=== PATIENT | male | born 1990 | race African-American/Black ===

== ENCOUNTER 2016-10-06 02:13 | Inpatient (IN) | payer SELFPAY ==
[~2016-10-06] VITALS: Ht 170.2 cm; Wt 69.8 kg
[2016-10-06] MEDS ORDERED: ONDANSETRON HCL 4 MG/2 ML VIAL ONE (02:17)
[2016-10-06] MEDS ORDERED: HYDROmorphone HCL PF 1 MG/ML VIAL ONE (02:17)
[2016-10-06 02:20] VITALS: BP 134/76; PULSE 73; RESP 19; RESP 22; TEMP 97.9; O2SAT 100; O2SAT 97
[2016-10-06] MEDS ORDERED: SODIUM CHLOR 0.9% 1000 ML INJ 1,000 ML IV SCH (02:20)
[2016-10-06] MEDS ORDERED: DIPHTH/TETANUS/ACEL PERTUSSIS (BOOSTER) 0.5 ML VIAL/PFS IM ONE (02:21)
[2016-10-06] MEDS ORDERED: ceFAZolin 2 GM PREMIX 50 ML ONE (02:21)
[2016-10-06] MEDS ORDERED: HYDROmorphone HCL PF 1 MG/ML VIAL IVS ONE (02:30)
[2016-10-06] MEDS ORDERED: TETANUS/DIPHTHERIA TOXOID ADULT 0.5 ML VIAL IM ONE (02:30)
[2016-10-06] MEDS ORDERED: ceFAZolin 2 GM PREMIX 50 ML IV ONE (02:30)
[2016-10-06] MEDS ORDERED: ONDANSETRON HCL 4 MG/2 ML VIAL IVP ONE (02:30)
[2016-10-06] MEDS ORDERED: SODIUM CHLORIDE 0.9% FLUSH 10 ML FLUSH IV FLUSH PRN ×2 (02:30→10:00)
[2016-10-06 02:49] LABS: AUTOMATED NEUTROPHIL # 4.5 TH/MM3 (1.8-7.7); BASOPHIL # 0.1 TH/MM3 (0-0.2); EOSINOPHIL # 0.1 TH/MM3 (0-0.4); EOSINOPHIL % 0.9 % (0.0-4.0); HEMATOCRIT 40.6 % (39.0-51.0); HEMO FLAGS DIFF FINAL; LYMPH % 33.2 % (9.0-44.0); LYMPHOCYTE # 2.8 TH/MM3 (1.0-4.8); MEAN CELL VOLUME 84.4 FL (80.0-100.0); MEAN CORPUSCULAR HGB CONC 33.2 % (32.0-36.0); MONO % 10.3 % (0.0-8.0); NEUT % 54.6 % (16.0-70.0); PLATELET COUNT 255 TH/MM3 (150-450); RED BLOOD COUNT 4.81 MIL/MM3 (4.50-5.90); RED CELL DISTRIBUTION WIDTH 14.1 % (11.6-17.2); WHITE BLOOD COUNT 8.3 TH/MM3 (4.0-11.0)
[2016-10-06 02:58] LABS: APTT (PATIENT) 22.9 SEC (24.3-30.1); PROTHROMBIN TIME - PATIENT 10.6 SEC (9.8-11.6)
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
[2016-10-06 03:17] LABS: BICARBONATE 23.5 MEQ/L (21.0-32.0); POTASSIUM 3.5 MEQ/L (3.5-5.1)
[2016-10-06] MEDS ORDERED: HYDROmorphone HCL PF 1 MG/ML VIAL IV PUSH ONE (03:30)
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
[2016-10-06] MEDS ORDERED: BUPIVACAINE HCL PF 0.5% 30 ML VIAL ONE (06:42)
[2016-10-06] MEDS ORDERED: LIDOCAINE HCL 1% 50 ML VIAL ONE (06:43)
[2016-10-06] MEDS ORDERED: FAMOTIDINE 20 MG/2 ML VIAL ONE (07:20)
[2016-10-06] MEDS ORDERED: ceFAZolin INJ 1,000 MG VIAL ONE (07:28)
[2016-10-06] MEDS ORDERED: NEOMYCIN/POLYMYXIN 1 ML G.U. IRRIGANT IR ONE (07:52)
[2016-10-06] MEDS ORDERED: MUPIROCIN 2% OINT 22 GM TUBE TOP ONE (09:20)
--- NOTE | 2016-10-06 09:41 | PD.OP ---
Operative Report Preoperative Diagnosis: (1) Laceration of left hand with complication (2) Fx trapezium bone-open (3) Open fracture of scaphoid bone of left wrist Postoperative Diagnosis: (1) Fx trapezium bone-open (2) Laceration of left hand with complication (3) Open fracture of scaphoid bone of left wrist Procedure: exploration, excisional debridement, open reduction and internal fixation trapezium with k-wires and repair of laceration left wrist and hand Anesthesia: general Surgeon: Noel Zhou Senior Escrow Officer(s): giovany Operation and Findings: complex laceration with thenar flap over the volar radial aspect of the wrist and hand extensive foreign bodies within the wound comminuted fracture trapezium fracture scaphoid tuberosity Noel Zhou MD Oct 06, 2016 09:41
[2016-10-06] MEDS ORDERED: fentaNYL CITRATE 250 MCG/5 ML AMP ONE (09:45)
[2016-10-06] MEDS ORDERED: MIDAZOLAM HCL 2 MG/2 ML VIAL ONE (09:46)
[2016-10-06] MEDS ORDERED: NALOXONE HCL 0.4 MG/ML AMP IV PRN (10:00)
[2016-10-06] MEDS ORDERED: SENNOSIDES 8.6 MG TAB PO PRN (10:00)
[2016-10-06] MEDS ORDERED: ONDANSETRON HCL 4 MG/2 ML VIAL IVP PRN (10:00)
[2016-10-06] MEDS ORDERED: BISACODYL 10 MG SUPP RECTAL PRN (10:00)
[2016-10-06] MEDS ORDERED: MAGNESIUM HYDROXIDE SUSP 30 ML CUP PO PRN (10:00)
[2016-10-06] MEDS ORDERED: LACTULOSE SYRUP 20 GM/30 ML CUP PO PRN (10:00)
[2016-10-06] MEDS ORDERED: *morphine SULFATE 8 MG/ML PERIprocedure ONLY ONE (10:16)
[2016-10-06] MEDS ORDERED: DO NOT ADM ANY ANTICOAGULANT DRUGS PRN (10:45)
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
--- NOTE | 2016-10-06 11:08 | RADRPT ---
EXAM DATE/TIME: 10/06/2016 10:13 [facility] COMPARISON: No previous studies available for comparison. INDICATIONS : Pain. MEDICAL HISTORY : None. SURGICAL HISTORY : None. ENCOUNTER: Initial ACUITY: 1 day PAIN SCORE: Non-responsive. LOCATION: Left knee. FINDINGS: Four view examination of the left knee demonstrates no evidence of fracture or dislocation. Soft tiss ue swelling is seen along the anteromedial aspect of the knee. Bony mineralization is normal. The ar ticular surfaces are intact. The suprapatellar soft tissues have a normal configuration. CONCLUSION: Soft tissue swelling without evidence of acute fracture or significant arthropathy. Seth Szymanski MD on October 06, 2016 at 11:06 Board Certified Radiologist. This report was verified electronically.
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
[2016-10-06] MEDS ORDERED: PROPOFOL 200 MG/20 ML AMP IV ONE (12:00)
[2016-10-06] MEDS ORDERED: ONDANSETRON HCL 4 MG/2 ML VIAL IV PUSH ONE (12:00)
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
[2016-10-06] MEDS ORDERED: MORPHINE SULFATE 8 MG/ML INJ IV PUSH PRN (16:00)
[2016-10-06 16:17] VITALS: BP 142/86; PULSE 81; RESP 16; TEMP 98.1; O2SAT 82
[2016-10-06 20:00] VITALS: BP 131/79; PULSE 89; RESP 18; TEMP 98.5; O2SAT 96
[2016-10-06] MEDS: SODIUM CHLORIDE 0.9% FLUSH 10 ML FLUSH IV FLUSH SCH (21:00)
[2016-10-06] MEDS: DOCUSATE SODIUM 50 MG/SENNA 8.6 MG TAB PO SCH (22:03)
[2016-10-06] MEDS: MORPHINE SULFATE 8 MG/ML INJ IV PUSH PRN (22:04)
[2016-10-07] VITALS: BP 128/76; PULSE 81; RESP 18; TEMP 98.3; O2SAT 96
[2016-10-07 04:00] VITALS: BP 127/74; PULSE 76; RESP 18; TEMP 97.6; O2SAT 96
[2016-10-07 08:00] VITALS: BP 129/74; PULSE 103; RESP 15; TEMP 99.6; O2SAT 92
[2016-10-07] MEDS: SODIUM CHLORIDE 0.9% FLUSH 10 ML FLUSH IV FLUSH SCH (09:50)
[2016-10-07] MEDS: DOCUSATE SODIUM 50 MG/SENNA 8.6 MG TAB PO SCH (09:50)
[2016-10-07] MEDS: MORPHINE SULFATE 8 MG/ML INJ IV PUSH PRN ×3 (09:50→18:42)
[2016-10-07 11:00] LABS: AUTOMATED NEUTROPHIL # 12.5 TH/MM3 (1.8-7.7); BASOPHIL % 0.3 % (0.0-2.0); EOSINOPHIL # 0.2 TH/MM3 (0-0.4); EOSINOPHIL % 1.3 % (0.0-4.0); HEMATOCRIT 43.1 % (39.0-51.0); HEMO FLAGS DIFF FINAL; LYMPH % 6.5 % (9.0-44.0); LYMPHOCYTE # 0.9 TH/MM3 (1.0-4.8); MEAN CELL VOLUME 85.1 FL (80.0-100.0); MEAN CORPUSCULAR HEMOGLOBIN 27.2 PG (27.0-34.0); MONO % 3.5 % (0.0-8.0); NEUT % 88.4 % (16.0-70.0); PLATELET COUNT 199 TH/MM3 (150-450); RED BLOOD COUNT 5.07 MIL/MM3 (4.50-5.90); RED CELL DISTRIBUTION WIDTH 14.2 % (11.6-17.2); WHITE BLOOD COUNT 14.1 TH/MM3 (4.0-11.0)
[2016-10-07 11:30] LABS: BICARBONATE 22.7 MEQ/L (21.0-32.0); POTASSIUM 3.8 MEQ/L (3.5-5.1)
[2016-10-07 12:00] VITALS: BP 136/86; PULSE 104; RESP 16; TEMP 99.9; O2SAT 89
--- NOTE | 2016-10-07 13:13 | HHI.PR ---
Subjective Remarks Follow-up left hand injury. Patient's nurse informs me that the patient has been short of breath and has required oxygen this morning. He was noted to have a pulse ox of 89%. The patient states that his knee pain is better. He does report feeling short of breath. Objective Vitals Vital Signs Date Time Temp Pulse Resp B/P Pulse Ox O2 Delivery O2 Flow Rate FiO2 10/07/16 08:00 99.6 103 15 129/74 92 10/07/16 04:00 97.6 76 18 127/74 96 10/07/16 00:00 98.3 81 18 128/76 96 10/06/16 22:09 18 10/06/16 20:00 98.5 89 18 131/79 96 10/06/16 16:17 98.1 81 16 142/86 82 10/06/16 15:00 82 18 128/88 93 Nasal Cannula 2 I/O 10/06/16 10/06/16 10/06/16 10/07/16 10/07/16 10/07/16 07:00 15:00 23:00 07:00 15:00 23:00 Intake Total 600 ml 500 ml Output Total 20 ml 300 ml Balance 580 ml 200 ml Intake Oral 100 ml IV Total 400 ml Other 600 ml Output Urine Total 300 ml Estimated Blood Loss 20 ml Other 0 ml # Voids 1 Result Diagram: 10/07/16 0925 10/07/16 0925 Imaging Last Impressions Knee X-Ray 10/06/16 0000 Signed Impressions: Service Date/Time: Thursday, October 06, 2016 10:13 - CONCLUSION: Soft tissue swelling without evidence of acute fracture or significant arthropathy. Seth Szymanski MD Hand X-Ray 10/06/16 0000 Signed Impressions: Service Date/Time: Thursday, October 06, 2016 02:14 - CONCLUSION: Extensive soft tissue injury as described above with exposed carpal bones suspected and probable fracture off the radial aspect of the scaphoid. Edgar Oleary MD Objective Remarks General: No acute distress. Heart: Regular rate and rhythm. No murmur. Lungs: Clear to auscultation bilaterally. No wheezes, rales, or rhonchi. Breathing is nonlabored. Abdomen: Soft, nontender, nondistended. Extremities: No lower extremity edema. Left upper extremity elevated and heavily bandaged. Psych: Sleeping, but does awaken and answer questions. Procedures 10/06/16 left wrist/hand exploration, wash, excisional debridement, open reduction internal fixation trapezium, repair of laceration Urinary Catheter: No Vascular Central Line Catheter: No A/P Problem List: (1) Laceration of left hand ICD Code: S61.412A Status: Acute (2) Fx trapezium bone-open ICD Code: S62.173B Status: Acute (3) Laceration of left hand with complication ICD Code: S61.412A Status: Acute (4) Open fracture of scaphoid bone of left wrist ICD Code: S62.002B Status: Acute (5) Hypoxia ICD Code: R09.02 Status: Acute (6) Dyspnea ICD Code: R06.00 Status: Acute Assessment and Plan 1. Left hand injury: Status post surgical repair by hand surgery. Continue pain control, antibiotics. 2. Left knee pain: X-ray shows soft tissue swelling, but no bony injury. Pain has improved. 3. DVT prophylaxis: SCDs, KAE hose. Subcutaneous heparin. 4. Dyspnea, hypoxia: Check chest x-ray. Continue supplemental oxygen. Problem Qualifiers (1) Laceration of left hand: Qualified Code: S61.412A - Laceration of left hand, foreign body presence unspecified, initial encounter (2) Open fracture of scaphoid bone of left wrist: Manny Siddiqi MD Oct 07, 2016 13:13
--- NOTE | 2016-10-07 13:44 | RADRPT ---
EXAM DATE/TIME: 10/07/2016 13:16 [facility] COMPARISON: No previous studies available for comparison. INDICATIONS : Shortness of breath. MEDICAL HISTORY : Smoker. SURGICAL HISTORY : None. ENCOUNTER: Initial ACUITY: 1 day PAIN SCORE: 0/10 LOCATION: Bilateral chest FINDINGS: A single view of the chest demonstrates decreased lung volumes and subtle patchy bilateral parenchyma l densities. Heart normal in size. Osseous structures are intact. No pleural effusions or pneumothor ax. CONCLUSION: Decreased lung volumes and subtle patchy bilateral parenchymal densities. Librado Strong MD on October 07, 2016 at 13:41 Board Certified Radiologist. This report was verified electronically.
[2016-10-07] MEDS: HEPARIN SODIUM - SQ 10,000 UNITS/ML VIAL SQ SCH (14:20)
--- NOTE | 2016-10-07 16:00 | HHI.PR ---
Subjective Remarks complains of pain complaint with limb elevation complains of intermittent numbness no fever Objective Vital Signs Date Time Temp Pulse Resp B/P Pulse Ox O2 Delivery O2 Flow Rate FiO2 10/07/16 12:00 99.9 104 16 136/86 89 10/07/16 08:00 99.6 103 15 129/74 92 10/07/16 04:00 97.6 76 18 127/74 96 10/07/16 00:00 98.3 81 18 128/76 96 10/06/16 22:09 18 10/06/16 20:00 98.5 89 18 131/79 96 10/06/16 16:17 98.1 81 16 142/86 82 I/O 10/06/16 10/06/16 10/06/16 10/07/16 10/07/16 10/07/16 07:00 15:00 23:00 07:00 15:00 23:00 Intake Total 600 ml 500 ml Output Total 20 ml 300 ml Balance 580 ml 200 ml Intake Oral 100 ml IV Total 400 ml Other 600 ml Output Urine Total 300 ml Estimated Blood Loss 20 ml Other 0 ml # Voids 1 examination of left upper extremity: dressing and splint in place flap appears viable, mild surrounding maceration noted k wire pin tract site clean and dry intact distal capillary refill intact sensation distally Result Diagram: 10/07/1692410/07/16924 Assessment and Plan Assessment and Plan patient is s/p exploration, ORIF trapezium with repair of complex laceration left hand/wrist and forearm Plan: surrounding skin is cleaned with alcohol wipes dry dressing applied new well padded thumb spica splint was applied. cleared for discharge on po antibiotics and pain meds keep the part elevated follow up in office this week. patient has issues with oxygen saturation and is being monitored for pneumonia had a discussion with Noel Haynes MD Oct 07, 2016 16:00
[2016-10-07] MEDS: RESP: ALBUTEROL 2.5 MG/3 ML NEB (PRN) NEB (16:12)
[2016-10-07] MEDS: LEVOFLOXACIN 750 MG PREMIX INJ 150 ML IV SCH (17:14)
[2016-10-07 18:34] VITALS: O2SAT 95
[2016-10-07 20:00] VITALS: BP 133/78; PULSE 100; RESP 20; TEMP 100.8; O2SAT 95
[2016-10-08] VITALS (9 sets, daily range): BP systolic 117–134; BP diastolic 63–81; PULSE 94–124; RESP 19–21; TEMP 99–100.6; O2SAT 92–95
[2016-10-08] MEDS: DOCUSATE SODIUM 50 MG/SENNA 8.6 MG TAB PO SCH ×3 (00:27→21:00)
[2016-10-08] MEDS: HEPARIN SODIUM - SQ 10,000 UNITS/ML VIAL SQ SCH ×5 (00:28→23:08)
[2016-10-08] MEDS: SODIUM CHLORIDE 0.9% FLUSH 10 ML FLUSH IV FLUSH SCH ×3 (00:28→21:00)
[2016-10-08] MEDS ORDERED: LEVO750T3 PO (09:21)
[2016-10-08] MEDS: RESP: ALBUTEROL 2.5 MG/3 ML NEB (PRN) NEB (10:31)
[2016-10-08 12:14] LABS: AUTOMATED NEUTROPHIL # 9.3 TH/MM3 (1.8-7.7); BASOPHIL % 0.4 % (0.0-2.0); EOSINOPHIL # 0.5 TH/MM3 (0-0.4); EOSINOPHIL % 4.3 % (0.0-4.0); HEMATOCRIT 42.9 % (39.0-51.0); HEMO FLAGS DIFF FINAL; LYMPH % 8.9 % (9.0-44.0); MEAN CELL VOLUME 83.2 FL (80.0-100.0); MEAN CORPUSCULAR HEMOGLOBIN 27.9 PG (27.0-34.0); MEAN CORPUSCULAR HGB CONC 33.5 % (32.0-36.0); MONO % 3.4 % (0.0-8.0); PLATELET COUNT 146 TH/MM3 (150-450); RED BLOOD COUNT 5.16 MIL/MM3 (4.50-5.90); WHITE BLOOD COUNT 11.2 TH/MM3 (4.0-11.0)
--- NOTE | 2016-10-08 12:16 | HHI.PR ---
Subjective Remarks Follow up pneumonia. Patient still with dyspnea. He has been yelling and threatening to leave AMA. He still has pain in the left knee and left hand. Objective Vitals Vital Signs Date Time Temp Pulse Resp B/P Pulse Ox O2 Delivery O2 Flow Rate FiO2 10/08/16 10:36 94 Nasal Cannula 2.00 10/08/16 07:56 99.9 114 20 124/74 92 10/08/16 04:00 99.6 94 21 133/71 92 10/08/16 03:44 99.8 101 19 130/77 93 10/08/16 00:49 19 10/08/16 00:00 100.6 99 21 126/81 93 10/07/16 20:00 100.8 100 20 133/78 95 10/07/16 18:34 95 I/O 10/07/16 10/07/16 10/07/16 10/08/16 10/08/16 10/08/16 07:00 15:00 23:00 07:00 15:00 23:00 Intake Total 240 ml Balance 240 ml Intake Oral 240 ml # Voids 1 0 # Bowel Movements 0 Result Diagram: 10/07/16 0925 10/07/16 0925 Imaging Last Impressions Chest X-Ray 10/07/16 0000 Signed Impressions: Service Date/Time: Friday, October 07, 2016 13:16 - CONCLUSION: Decreased lung volumes and subtle patchy bilateral parenchymal densities. Librado Strong MD Knee X-Ray 10/06/16 0000 Signed Impressions: Service Date/Time: Thursday, October 06, 2016 10:13 - CONCLUSION: Soft tissue swelling without evidence of acute fracture or significant arthropathy. Seth Szymanski MD Hand X-Ray 10/06/16 0000 Signed Impressions: Service Date/Time: Thursday, October 06, 2016 02:14 - CONCLUSION: Extensive soft tissue injury as described above with exposed carpal bones suspected and probable fracture off the radial aspect of the scaphoid. Edgar Oleary MD Objective Remarks General: No acute distress. Heart: Regular rate and rhythm. No murmur. Lungs: Scattered rhonchi. Breathing is nonlabored. Abdomen: Soft, nontender, nondistended. Extremities: No lower extremity edema. Left upper extremity elevated and heavily bandaged. Left knee bandage contact with small amount of serosanguineous drainage. Psych: Alert, oriented. Procedures 10/06/16 left wrist/hand exploration, wash, excisional debridement, open reduction internal fixation trapezium, repair of laceration Urinary Catheter: No Vascular Central Line Catheter: No A/P Problem List: (1) Laceration of left hand ICD Code: S61.412A Status: Acute (2) Fx trapezium bone-open ICD Code: S62.173B Status: Acute (3) Laceration of left hand with complication ICD Code: S61.412A Status: Acute (4) Open fracture of scaphoid bone of left wrist ICD Code: S62.002B Status: Acute (5) Hypoxia ICD Code: R09.02 Status: Acute (6) Dyspnea ICD Code: R06.00 Status: Acute (7) Pneumonia ICD Code: J18.9 Status: Acute Assessment and Plan 1. Left hand injury: Status post surgical repair by hand surgery. Continue pain control, antibiotics. 2. Left knee pain: X-ray shows soft tissue swelling, but no bony injury. Pain has improved. 3. DVT prophylaxis: SCDs, KAE hose. Subcutaneous heparin. 4. Pneumonia: Continue supplemental oxygen, antibiotics, nebulizer treatments, incentive spirometry. Discharge Planning Patient has been threatening to leave AGAINST MEDICAL ADVICE. I had a lengthy discussion with him yesterday about this and again today with his family at bedside. I have encouraged him to remain in the hospital at least 1 more day on antibiotics. Once he is no longer needing oxygen and is otherwise stable, will consider discharge home. Problem Qualifiers (1) Laceration of left hand: Qualified Code: S61.412A - Laceration of left hand, foreign body presence unspecified, initial encounter (2) Open fracture of scaphoid bone of left wrist: Manny Siddiqi MD Oct 08, 2016 12:16
[2016-10-08] MEDS: LEVOFLOXACIN 750 MG PREMIX INJ 150 ML IV SCH (17:45)
[2016-10-08] MEDS: MORPHINE SULFATE 8 MG/ML INJ IV PUSH PRN (23:08)
[2016-10-09] VITALS: BP 124/74; PULSE 113; RESP 18; TEMP 99.1; O2SAT 94
[2016-10-09 04:00] VITALS: BP 124/71; PULSE 88; RESP 16; TEMP 97.6; O2SAT 94
[2016-10-09] MEDS: HEPARIN SODIUM - SQ 10,000 UNITS/ML VIAL SQ SCH (05:10)
[2016-10-09 08:09] VITALS: BP 117/78; PULSE 87; RESP 20; TEMP 98.2; O2SAT 96
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
== END 2016-10-09 08:11 | disposition left against medical advice (07) | DRG 513 ==
LOC: NEPI 02:13 → HSDC 04:05 → HSDI 09:52 → N05A 16:12 → EDBD 10-07 09:17 → OBSVTOIN 10-07 09:17
PROVIDERS: ADMIT Family Medicine; ATTEND Family Medicine
PROC: 0PSN04Z Reposition Left Carpal with Internal Fixation Device, Open Approach (ICD-10-PCS; 2016-10-06)
PROC: 0HQGXZZ Repair Left Hand Skin, External Approach (ICD-10-PCS; 2016-10-06)
PROC: 0HQEXZZ Repair Left Lower Arm Skin, External Approach (ICD-10-PCS; 2016-10-06)
PROC: 0KBD0ZZ Excision of Left Hand Muscle, Open Approach (ICD-10-PCS; principal; 2016-10-06 07:29)
DX: S62.172B Displaced fracture of trapezium [larger multangular], left wrist, initial encounter for open fracture (principal); J18.9 Pneumonia, unspecified organism; S62.012 Displaced fracture of distal pole of navicular [scaphoid] bone of left wrist; F17.210 Nicotine dependence, cigarettes, uncomplicated; M25.562 Pain in left knee; R09.02 Hypoxemia; S81.012A Laceration without foreign body, left knee, initial encounter; W39.XXXA Discharge of firework, initial encounter
CPT/HCPCS: 71010; 73130; 73564; 76937; 80048; 85025; 85610; 85730; 86850; 86900; 86901; 90714; 90715; 94150; 94640; 94664; J0690; J1170; J1644; J1956; J2250; J2270; J2405; J3010; J7030; J7613